=== PATIENT | male | born 1985 | race Caucasian/White ===

== ENCOUNTER 2024-03-31 10:54 | Outpatient (CLI) | payer OTHER, SELFPAY ==
--- NOTE | ~2024-03-31 | XR_ITS ---
Right Shoulder Technique: AP and axillary views were obtained. Clinical History: Injury Findings: No fracture or dislocation is seen. Osseous alignment is anatomic. The glenohumeral and acr omioclavicular joint spaces are preserved. Soft tissues are unremarkable. Impression: Unremarkable right shoulder radiographs. Reviewed, dictated and finalized at [facility]. Impression: Unremarkable right shoulder radiographs.
== END 2024-03-31 10:55 ==
LOC: MICIMG 10:56
PROVIDERS: PCP Orthopaedic Surgery; Visit Provider Nurse Practitioner Family
DX: S49.91XA Unspecified injury of right shoulder and upper arm, initial encounter (principal); X58.XXXA Exposure to other specified factors, initial encounter
CPT/HCPCS: 73030

== ENCOUNTER 2024-11-02 10:51 | Emergency (ER) | payer OTHER, SELFPAY ==
--- NOTE | ~2024-11-02 | XR_ITS ---
EXAMINATION: XR chest 2V DATE: 11/02/2024 12:06 INDICATION: Chest pain and palpitations TECHNIQUE: PA and lateral views of the chest were obtained. COMPARISON: None FINDINGS: The lungs are clear with no focal airspace opacities, pulmonary edema, pleural effusion or pneumothor ax. The cardiomediastinal silhouette is normal. Surgical clips in the upper abdomen. IMPRESSION: 1. No acute cardiopulmonary disease. Reviewed, dictated and finalized at location A. IN MARKER
--- NOTE | ~2024-11-02 | CT_ITS ---
EXAMINATION: CTA chest PE protocol DATE: 11/02/2024 14:08 INDICATION: Chest pain. TECHNIQUE: Computed tomography angiography (CTA) of the chest was performed with 100 mL Omnipaque-350 intravenous contrast timed to evaluate the pulmonary arteries. Coronal maximum intensity projection 3D-reconstructions were created by the technologist. Automated exposure control and iterative reconst ruction technique were employed. The dose-length product was 635.14 mGy-cm. COMPARISON: CT abdomen and pelvis 04/20/2019 FINDINGS: There is no pneumonia or pleural effusion. The heart size is normal. No pericardial effusio n. There is no pulmonary embolus. There are surgical clips around the inferior vena cava. There is mi ld bilateral gynecomastia. There is mild chronic anterior wedging of multiple vertebral bodies. There is mild thoracic spondylosis. IMPRESSION: 1. No pulmonary embolus. Reviewed, dictated and finalized at location A. IOPULMONARY TECHNICIAN AND EEG TECH IMPRESSION: 1. No pulmonary embolus.
--- NOTE | 2024-11-02 10:52 | ECG_ITS ---
Test Date: 2024-11-02 11:05:15 Measurements Intervals [place] Rate: 75 P: 13 W[place]: 167 QRS: 37 QRSD: 92 T: 49 QT: 345 QTc: 386 Interpretive Statements SINUS RHYTHM No previous ECG available for comparison Electronically Signed On 11-02-2024 14:28:59 GOLF RANGE ATTENDANT by Diogenes Harrison M.D.
[2024-11-02 10:53] VITALS: BP 153/92; PULSE 77; RESP 18; TEMP 36.6; O2SAT 100
[2024-11-02 11:26] LABS: Basophils Absolute Auto 0.1 K/mm3 (0.0-0.1); Basophils Percent Auto 0.7 % (0.2-1.2); Eosinophils Absolute Auto 0.1 K/mm3 (0-0.3); Eosinophils Percent Auto 1.3 % (0-4.4); Hematocrit 48.4 % (42.0-52.0); Immature Granulocyte Absolute 0.02 K/mm3 (0.00-0.031); Immature Granulocyte Percent A 0.3 % (0-0.5); Lymphocytes Absolute Auto 1.92 K/mm3 (0.9-3.2); Lymphocytes Percent Auto 27.1 % (18.3-44.2); Mean Corpuscular HGB Conc 33.1 g/dl (32-36); Mean Corpuscular Hemoglobin 30.3 pg (26-34); Mean Corpuscular Volume 91.7 fl (80-100); Mean Platelet Volume 9.2 fl (7.4-10.4); Monocytes Absolute Auto 0.4 K/mm3 (0.1-0.6); Monocytes Percent Auto 5.9 % (2.6-8.5); Neutrophils Absolute Auto 4.6 K/mm3 (1.3-6.7); Neutrophils Percent Auto 64.7 % (45.5-73.1); Platelet Count Result 241 k/mm3 (150-375); Red Blood Count 5.28 M/mm3 (4.6-6.20); White Blood Count 7.1 K/mm3 (4.5-10.0)
[2024-11-02 11:39] LABS: Alanine Aminotransferase 64 U/L (6-50); Albumin Level 4.8 g/dL (3.5-5.1); Alkaline Phosphatase 68 U/L (38-126); Anion Gap 5 mmol/L (4-12); Aspartate Amino Transferase 61 U/L (17-59); Bilirubin,Total 0.7 mg/dL (0.2-1.3); Blood Urea Nitrogen 16 mg/dL (9-20); Calcium 9.4 mg/dL (8.4-10.2); Carbon Dioxide 29 mmol/L (22-30); Chloride 102 mmol/L (98-107); Estimated CRCL calculation 102 ml/min; Estimated Glomerular Filt Rate > 60; Glucose 103 mg/dL (65-110); Lipase 108 U/L (23-300); Potassium 4.2 mmol/L (3.4-5.0); Sodium 136 mmol/L (137-145)
[2024-11-02 11:43] LABS: Partial Thromboplastin Time 26.1 Seconds (22.3-36.8); Prothrombin Time 13.3 Seconds (11.1-14.7)
[2024-11-02 11:46] LABS: Troponin I < 0.012 ng/mL (0.000-0.034)
--- NOTE | 2024-11-02 13:07 | ED.CHESTPAIN ---
HPI - Chest Pain General Chief Complaint: Chest Pain <Amanda Tellez APRN - Last Filed: 11/02/24 13:10> Stated Complaint: Chest pain <Amanda Tellez APRN - Last Filed: 11/02/24 13:10> Time Seen by Provider: 11/02/24 12:50 <Amanda Tellez APRN - Last Filed: 11/02/24 13:10> Focused HPI: Patient is a 39-year-old male who presents to the ER with complaints chest pain. He reports last night around 2:00 a.m. his chest started beating out of my chest. He describes the current pain as tight and feels as though he needs to take a deep breath to relieve the pain. Although the pain has decreased he reports it is still lingering, but not aggravating. Patient denies shortness of breast, recent fevers, or wheezing. GENERAL: Well-appearing, well-nourished, and in no acute distress. HEAD: Normocephalic, atraumatic. CHEST: Clear to auscultation. ?No respiratory distress. HEART: Regular rate and rhythm.? NEURO: ?Alert and oriented x3. Patient screened in triage and initial orders placed.? ?Additional care and disposition to be based upon?diagnostic testing and treatment. <Amanda Tellez APRN - Last Filed: 11/02/24 13:10> History of Present Illness HPI narrative: Agree with above <Laura Oneil MD - Last Filed: 11/02/24 15:18> Related Data Allergies/Adverse Reactions: Allergies Allergy/AdvReac Type Severity Reaction Status Date / Time No Known Allergies Allergy Verified 11/02/24 13:13 <Amanda Tellez APRN - Last Filed: 11/02/24 13:10> Review of Systems Review of Systems: All systems reviewed & are unremarkable except as noted in HPI and below <Laura Oneil MD - Last Filed: 11/02/24 15:18> PMFSH Past Medical History Medical History: Medical History History of testicular cancer Lymphedema of upper extremity following lymphadenectomy (~2004) Recurrent cold sores <Amandachristiana Tellez APRN - Last Filed: 11/02/24 13:10> Surgical History Surgical History: Surgical History H/O removal of testicle (~2004) right testicle, abdominal lymphadenectomy History of appendectomy <Amandachristiana Tellez, STEAMBLASTER - Last Filed: 11/02/24 13:10> Social History Social History: Social History Smoking status: Never smoker Alcohol intake: current Substance use: never Substance use type: does not use Living arrangements: with family Additional living arrangements comments: and Children 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 HEAD: Normocephalic, atraumatic. EYES: PERRLA and EOMI. ENT: Grossly unremarkable NECK: Supple. CHEST: Clear to auscultation. No respiratory distress. HEART: Regular rate and rhythm ABDOMEN: Soft, nontender, nondistended EXTREMITIES: Normal range of motion SKIN: Warm, dry, no rash. NEURO: Alert and oriented x3. PSYCH: Normal mood and affect. <Laura Oneil MD - Last Filed: 11/02/24 15:18> Course Vital Signs Vital signs: Vital Signs Temperature 97.9 F 11/02/24 10:53 Pulse Rate 77 11/02/24 10:53 Respiratory Rate 18 11/02/24 10:53 Blood Pressure 153/92 H 11/02/24 10:53 Pulse Oximetry 100 11/02/24 10:53 Oxygen Delivery Room Air 11/02/24 10:53 Temperature 98.2 F 11/02/24 14:18 Pulse Rate 79 11/02/24 14:18 Respiratory Rate 16 11/02/24 14:18 Blood Pressure 130/73 11/02/24 14:18 Pulse Oximetry 100 11/02/24 14:20 Oxygen Delivery Room Air 11/02/24 14:20 <Amanda Tellez APRN - Last Filed: 11/02/24 13:10> Vital Signs Temperature 97.9 F 11/02/24 10:53 Pulse Rate 77 11/02/24 10:53 Respiratory Rate 18 11/02/24 10:53 Blood Pressure 153/92 H 11/02/24 10:53 Pulse Oximetry 100 11/02/24 10:53 Oxygen Delivery Room Air 11/02/24 10:53 Temperature 98.2 F 11/02/24 14:18 Pulse Rate 79 11/02/24 14:18 Respiratory Rate 16 11/02/24 14:18 Blood Pressure 130/73 11/02/24 14:18 Pulse Oximetry 100 11/02/24 14:20 Oxygen Delivery Room Air 11/02/24 14:20 <Laura Oneil MD - Last Filed: 11/02/24 15:18> MDM - Chest Pain MDM Narrative Medical decision making narrative: 39-year-old male presenting with palpitations, chest tightness, lightheadedness. Vitals are stable. Exam remarkable for the above. EKG per my interpretation shows normal sinus rhythm, no ST elevations or depressions. Blood work with elevated D-dimer. Troponin is undetectable. TSH is within normal limits. CTA of the chest shows no pulmonary embolus. Patient currently denies significant complaints. Feel he is safe for outpatient management. Discussed appropriate supportive care and return precautions. Recommend close PCP follow-up. Patient is agreeable this plan. Discharged in stable condition. <Laura Oneil MD - Last Filed: 11/02/24 15:18> Differential Diagnosis Differential diagnosis: Likely atypical chest pain, costochondritis, chest pain and other (Palpitations, PE, anxiety) <Laura Oneil MD - Last Filed: 11/02/24 15:18> Medical Records Data Attestation: I reviewed the patient's medical records. <Laura Oneil MD - Last Filed: 11/02/24 15:18> Lab Data Attestation: I reviewed the patient's lab results. <Laura Oneil MD - Last Filed: 11/02/24 15:18> Result diagrams: 11/02/24 11:16 12/02/24 11:16 <Amanda Ryan Tellez, STEAMBLASTER - Last Filed: 11/02/24 13:10> Labs: Lab Results 11/02/24 11/02/24 Range/Units 11:16 13:20 WBC 7.1 (4.5-10.0) K/mm3 RBC 5.28 (4.6-6.20) M/mm3 Hgb 16.0 (14.0-18.0) g/dL Hct 48.4 (42.0-52.0) % MCV 91.7 (80-100) fl MCH 30.3 (26-34) pg MCHC 33.1 (32-36) g/dl RDW 13.0 (11.5-14.5) % Plt Count 241 (150-375) k/mm3 MPV 9.2 (7.4-10.4) fl Immature Gran % (Auto) 0.3 (0-0.5) % Neut % (Auto) 64.7 (45.5-73.1) % Lymph % (Auto) 27.1 (18.3-44.2) % [place] % (Auto) 5.9 (2.6-8.5) % Eos % (Auto) 1.3 (0-4.4) % Baso % (Auto) 0.7 (0.2-1.2) % Lymph # (Auto) 1.92 (0.9-3.2) K/mm3 [place] # (Auto) 0.4 (0.1-0.6) K/mm3 Eos # (Auto) 0.1 (0-0.3) K/mm3 Baso # (Auto) 0.1 (0.0-0.1) K/mm3 Abs Immat Gran (auto) 0.02 (0.00-0.031) K/mm3 Absolute Neuts (auto) 4.6 (1.3-6.7) K/mm3 Absolute Nucleated RBC 0.000 (0.0-0.012) K/mm3 Nucleated RBC % 0.0 (0.0-0.2) % PT 13.3 (11.1-14.7) Seconds INR 1.0 APTT 26.1 (22.3-36.8) Seconds D-Dimer 2.34 H (<0.48) ug/mL Sodium 136 L (137-145) mmol/L Potassium 4.2 (3.4-5.0) mmol/L Chloride 102 (98-107) mmol/L Carbon Dioxide 29 (22-30) mmol/L Anion Gap 5 (4-12) mmol/L BUN 16 (9-20) mg/dL Creatinine 1.00 (0.7-1.3) mg/dL Estim Creat Clear Calc 102 ml/min Estimated GFR > 60 (59 - ) Glucose 103 (65-110) mg/dL Calcium 9.4 (8.4-10.2) mg/dL Total Bilirubin 0.7 (0.2-1.3) mg/dL AST 61 H (17-59) U/L ALT 64 H (6-50) U/L Alkaline Phosphatase 68 (38-126) U/L Troponin I < 0.012 (0.000-0.034) ng/mL NT-Pro-B Natriuret Pep < 20 (19.9-100) pg/mL Total Protein 8.0 (6.3-8.2) g/dL Albumin 4.8 (3.5-5.1) g/dL Lipase 108 (23-300) U/L TSH (Reflex) 1.840 (0.465-4.68) uIU/mL <Amanda Tellez, STEAMBLASTER - Last Filed: 11/02/24 13:10> Lab Results 11/02/24 11/02/24 Range/Units 11:16 13:20 WBC 7.1 (4.5-10.0) K/mm3 RBC 5.28 (4.6-6.20) M/mm3 Hgb 16.0 (14.0-18.0) g/dL Hct 48.4 (42.0-52.0) % MCV 91.7 (80-100) fl MCH 30.3 (26-34) pg MCHC 33.1 (32-36) g/dl RDW 13.0 (11.5-14.5) % Plt Count 241 (150-375) k/mm3 MPV 9.2 (7.4-10.4) fl Immature Gran % (Auto) 0.3 (0-0.5) % Neut % (Auto) 64.7 (45.5-73.1) % Lymph % (Auto) 27.1 (18.3-44.2) % [place] % (Auto) 5.9 (2.6-8.5) % Eos % (Auto) 1.3 (0-4.4) % Baso % (Auto) 0.7 (0.2-1.2) % Lymph # (Auto) 1.92 (0.9-3.2) K/mm3 [place] # (Auto) 0.4 (0.1-0.6) K/mm3 Eos # (Auto) 0.1 (0-0.3) K/mm3 Baso # (Auto) 0.1 (0.0-0.1) K/mm3 Abs Immat Gran (auto) 0.02 (0.00-0.031) K/mm3 Absolute Neuts (auto) 4.6 (1.3-6.7) K/mm3 Absolute Nucleated RBC 0.000 (0.0-0.012) K/mm3 Nucleated RBC % 0.0 (0.0-0.2) % PT 13.3 (11.1-14.7) Seconds INR 1.0 APTT 26.1 (22.3-36.8) Seconds D-Dimer 2.34 H (<0.48) ug/mL Sodium 136 L (137-145) mmol/L Potassium 4.2 (3.4-5.0) mmol/L Chloride 102 (98-107) mmol/L Carbon Dioxide 29 (22-30) mmol/L Anion Gap 5 (4-12) mmol/L BUN 16 (9-20) mg/dL Creatinine 1.00 (0.7-1.3) mg/dL Estim Creat Clear Calc 102 ml/min Estimated GFR > 60 (59 - ) Glucose 103 (65-110) mg/dL Calcium 9.4 (8.4-10.2) mg/dL Total Bilirubin 0.7 (0.2-1.3) mg/dL AST 61 H (17-59) U/L ALT 64 H (6-50) U/L Alkaline Phosphatase 68 (38-126) U/L Troponin I < 0.012 (0.000-0.034) ng/mL NT-Pro-B Natriuret Pep < 20 (19.9-100) pg/mL Total Protein 8.0 (6.3-8.2) g/dL Albumin 4.8 (3.5-5.1) g/dL Lipase 108 (23-300) U/L TSH (Reflex) 1.840 (0.465-4.68) uIU/mL <Laura Oneil MD - Last Filed: 11/02/24 15:18> Imaging Data Radiologist's impression: ITS Impressions Chest X-Ray 11/02/24 12:07 IMPRESSION: 1. No acute cardiopulmonary disease. Chest CTA 11/02/24 14:18 IMPRESSION: 1. No pulmonary embolus. <Laura Oneil MD - Last Filed: 11/02/24 15:18> Critical Care Time Critical Care Time Critical Care Time: No <Laura Oneil MD - Last Filed: 11/02/24 15:18> Discharge Plan Discharge Clinical Impression: Palpitations, Chest tightness, Light-headedness <Amanda Tellez APRN - Last Filed: 11/02/24 13:10> Patient Disposition: Home, Self-Care <Amanda Tellez APRN - Last Filed: 11/02/24 13:10> Condition: Stable <Amanda Tellez APRN - Last Filed: 11/02/24 13:10> Instructions: Antibiotic Form, Chest Pain (DC), Heart Palpitations (DC) <Amanda Tellez APRN - Last Filed: 11/02/24 13:10> Additional Instructions: Your EKG, blood work, CT scan today are reassuring. Please rest and drink plenty of hydrating fluids. Follow-up closely with your PCP. If your symptoms worsen or other concerning symptoms arise, please return to the ER. <Amanda Tellez APRN - Last Filed: 11/02/24 13:10> Prescriptions: No Action acyclovir 400 mg tablet 400 mg PO DAILY Qty: 90 3RF <Amanda Tellez APRN - Last Filed: 11/02/24 13:10> Follow-up/Referrals: Ani Sadler MD [Primary Care Provider] - <Amanda Tellez APRN - Last Filed: 12/02/24 13:10>
[2024-11-02 13:13] VITALS: BP 147/75; PULSE 73; RESP 19; O2SAT 100
[2024-11-02] MEDS: ASPIRIN 81 MG CHEWABLE TABLET 324 MG PO (13:14)
[2024-11-02] MEDS: KETOROLAC (*BKC) 60 MG/2 ML VIAL IM (13:15)
[2024-11-02 13:52] LABS: D Dimer 2.34 ug/mL (<0.48)
[2024-11-02 13:55] LABS: NT Pro B Type Natriuretic Pept < 20 pg/mL (19.9-100)
[2024-11-02 14:18] VITALS: BP 130/73; PULSE 79; RESP 16; TEMP 36.8; O2SAT 100
[2024-11-02 14:20] VITALS: O2SAT 100
[2024-11-02 15:19] VITALS: BP 129/69; PULSE 70; RESP 10; TEMP 36.7; O2SAT 100
== END 2024-11-02 15:25 | disposition home or self-care (01) ==
PROVIDERS: Registered Nurse; Student in an Organized Health Care Education/Training Program; Emergency Provider Emergency Medicine; PCP Family Medicine
DX: R00.2 Palpitations (principal); R07.89 Other chest pain; R42 Dizziness and giddiness; Z85.47 Personal history of malignant neoplasm of testis
CPT/HCPCS: 36415; 71046; 71275; 80053; 83690; 83880; 84443; 84484; 85025; 85380; 85610; 85730; 93005; 96372; 99284; A9270; J1885; Q9967

== ENCOUNTER 2024-11-22 09:01 | Emergency (ER) | payer OTHER, SELFPAY ==
--- NOTE | ~2024-11-22 | XR_ITS ---
EXAMINATION: XR chest 2V DATE: 11/22/2024 10:30 INDICATION: Cough and chills. TECHNIQUE: Frontal and lateral views of the chest were obtained. COMPARISON: Chest 2 views 11/02/24, chest CT 11/02/2024 FINDINGS: There is mild atelectasis at the lung bases. No pleural effusion or pneumothorax. The heart size is normal. There is mild chronic anterior wedging of multiple vertebral bodies. There are surgi muna clips in the abdomen. IMPRESSION: 1. Mild atelectasis at the lung bases. Reviewed, dictated and finalized at location A. [facility]
[2024-11-22 09:42] VITALS: BP 138/81; PULSE 104; RESP 18; TEMP 37.2; O2SAT 97
--- NOTE | 2024-11-22 10:00 | ED_ITS ---
HPI - URI/Sore Throat General Chief Complaint: Upper Respiratory Infection Stated Complaint: congestion Time Seen by Provider: 11/22/24 10:00 Source: patient, RN notes reviewed and old records reviewed Mode of arrival: ambulatory Limitations: no limitations History of Present Illness HPI Narrative: 39-year-old male who presents to [facility] with complaints of sore throat, headache, nonproductive cough with some chills and sweats for the past 5 days with loss of appetite.. 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 Patient reports no shortness of breath or any noted wheezing. Patient has been taking DayQuil and NyQuil has not taken his temperature but has had chills and sweats. MD elicited complaint: cough, sore throat and other (headache.chills and sweats) Onset (ago): day(s) (5) Consistency: constant Pain scale (0-10): 5 Able to tolerate fluids by mouth: Yes Treatments prior to arrival: other ( DayQuil and NyQuil) Related Data Allergies Allergy/AdvReac Type Severity Reaction Status Date / Time No Known Allergies Allergy Verified 11/22/24 09:53 Review of Systems Review of Systems: CONSTITUTIONAL: report malaise, chills, sweats, unknown if fever. EYES: Denies visual changes, redness, or discharge. ENT: Reports rhinorrhea, congestion, sinus pain, no otalgia and positive sore throat. CARDIOVASCULAR: Denies chest pain, palpitations, or edema. RESPIRATORY: Reports cough.? Denies dyspnea. GASTROINTESTINAL: Denies abdominal pain, nausea, vomiting, diarrhea SKIN: Denies rash or itching. MUSCULOSKELETAL: Denies myalgia. NEUROLOGIC: reports headache. All systems reviewed & are unremarkable except as noted in HPI and below PMFSH Past Medical History Medical History Recurrent cold sores History of testicular cancer Lymphedema of upper extremity following lymphadenectomy (~2004) Surgical History Surgical History History of appendectomy H/O removal of testicle (~2004) right testicle, abdominal lymphadenectomy Social History Social History Smoking status: Never smoker Alcohol intake: current Drinks per week: 4 Substance use: never Substance use type: does not use Living arrangements: with family Additional living arrangements comments: and Children 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 There is no relevant family history pertinent to the presenting complaint Exam Narrative: GENERAL: Well-appearing, well-nourished, and in no acute distress. HEAD: Normocephalic EYES: PERRLA, conjunctivae clear ENT: Nares clear, turbinates edematous and erythematous, clear discharge. Mucous membranes moist. TM pearly baez with dull light reflex bilaterally; no tragal tenderness. Oropharynx erythematous without lesions. Tonsils not enlarged and without exudate, no drooling, no hoarseness, no trismus, uvula midline, post nasal drainage present NECK: Supple. No lymphadenopathy CHEST: Decreased bases on auscultation, breath sounds equal. No wheezing, rhonchi, rales, or stridor. No respiratory distress, speaks in full sentences.cough noted SAO2 97% on room air HEART: Regular rate and rhythm. No murmur heard. SKIN: Warm, dry, no rash. NEURO: Alert and oriented x3. PSYCH: Normal mood and affect Course Course Emergency Course: Patient is aware of diagnosis, understands and agrees to treatment plan.? Anticipatory guidance given.? Patient agrees to follow-up as directed and is aware of reasons to seek care at the emergency department. Portions of this record may have been created with voice recognition software Level of Care: Express Care Visit Vital Signs Vital signs: Vital Signs Temperature 37.2 C 11/22/24 09:42 Pulse Rate 104 H 11/22/24 09:42 Respiratory Rate 18 11/22/24 09:42 Blood Pressure 138/81 11/22/24 09:42 Pulse Oximetry 97 11/22/24 09:42 Oxygen Delivery Room Air 11/22/24 09:42 Temperature 37.2 C 11/22/24 09:42 Pulse Rate 104 H 11/22/24 09:42 Respiratory Rate 18 11/22/24 09:42 Blood Pressure 138/81 11/22/24 09:42 Pulse Oximetry 97 11/22/24 09:42 Oxygen Delivery Room Air 11/22/24 09:42 Reviewed MDM - URI/Sore Throat MDM Narrative Medical decision making narrative: Differential diagnosis considered: Jang virus, strep pharyngitis, allergic rhinitis, upper respiratory tract infection, sinusitis, rhinosinusitis, nasopharyngitis. viral pharyngitis, otitis media, otitis externa, pneumonia, bronchitis, viral cough syndrome, viral syndrome, and influenza.? Exam findings show no acute concerns or changes; patient is non-toxic appearing and is in no distress.? Patient is appropriate for outpatient treatment and follow-up. Differential Diagnosis Differential diagnosis: Likely upper respiratory infection, otitis media, sinusitis, viral infection, influenza, pharyngitis and other ( strep pharyngitis, COVID) Medical Records Attestation: I reviewed the patient's medical records. Lab Data Attestation: I reviewed the patient's lab results. Lab results narrative: strep screen neg, strep culture sent,influenza a negative and influenza B negative COVID antigen neg Labs: Lab Results 11/22/24 11/22/24 Range/Units 10:15 10:19 POC Influenza A Ag Negative (Negative) POC Influenza B Ag Negative (Negative) POC SARS CoV-2 Ag Negative (Negative) POC Grp A Strep Screen Negative (Negative) Imaging Data My impression: mild atelectasis in lung bases Radiologist's impression: [place] [address] XRay Report Signed Patient: Luis F Tapia : 1985 MR#: [id number] Age: 39 Acct:[id number] Loc: [facility] ADM Date: 11/22/24Attending Dr: Ordering Physician: Regina Hubbard APRN Date of Service: 11/22/24 Procedure(s): XR chest 2V Accession Number(s): [id number] cc: Ani Sadler MD; Regina Hubbard APRN~ EXAMINATION: XR chest 2V DATE: 11/22/2024 10:30 INDICATION: Cough and chills. TECHNIQUE: Frontal and lateral views of the chest were obtained. COMPARISON: Chest 2 views 11/02/24, chest CT 11/02/2024 FINDINGS: There is mild atelectasis at the lung bases. No pleural effusion or pneumothorax. The heart size is normal. There is mild chronic anterior wedging of multiple vertebral bodies. There are surgical clips in the abdomen. IMPRESSION: 1. Mild atelectasis at the lung bases. Reviewed, dictated and finalized at location A. EY RESEARCH ANALYST Dictated By: Abelino Gray MD 11/22/24 1036 Signed By: <Electronically signed by Abelino Gray MD in OV> Critical Care Time Critical Care Time Critical Care Time: No Discharge Plan Discharge Clinical Impression: Upper respiratory infection with cough and congestion Patient Disposition: Home, Self-Care Condition: Stable Instructions: Antibiotic Form, Upper Respiratory Infection (ED), Acute Cough (ED) Additional Instructions: Increase fluids especially juices and water Xtel-wod-lfoymzt cough and cold medicine of your choice for your symptoms Zyrtec Claritin or Ella daily Continue your inhaler/nebulizer as directed Steroids as directed--take with food heat to the face 20-30 minutes 4-6 times a day for pain Salt water gargles, throat lozenges or throat sprays as desired Antibiotic as directed--finished the medication If your symptoms persist, change or worsen significantly before you can contact your personal physician then please, without delay, go to the emergency department for further evaluation. Follow-up with PCP in 7-10 days or sooner if needed Follow up with PCP soon in regards to your blood pressure which is elevated above threshold for referral. Blood pressure above 120/80 may indicate pre- hypertension. 138/81 Patient Language: Luxembourgish Prescriptions: New prednisone 20 mg tablet 40 mg PO DAILY 5 Days Qty: 10 0RF amoxicillin-pot clavulanate 875-125 mg tablet 1 tablet PO Q12H Qty: 20 0RF Rx Instructions: take with food complete all doses recommend probiotics or eating activa yogurt while on this medication Follow-up/Referrals: Ani Sadler MD [Primary Care Provider] - Time of Disposition: 10:48 Quality Silas Coma Scale Eyes: Open Verbal: Oriented and Alert Motor: Follows Commands Silas Coma Total Score: 15
[2024-11-22 10:17] LABS: EDSTREPNEGPOS1 Negative (Negative)
[2024-11-22 10:21] LABS: EDCOVIDSCREEN Negative (Negative); EDINFLUASCREEN Negative (Negative); EDINFLUBSCREEN Negative (Negative)
== END 2024-11-22 10:51 | disposition home or self-care (01) ==
PROVIDERS: Emergency Provider Registered Nurse; PCP Family Medicine
DX: J06.9 Acute upper respiratory infection, unspecified (principal); R05.9 Cough, unspecified; Z20.822 Contact with and (suspected) exposure to COVID-19
CPT/HCPCS: 71046; 87081; 87426; 87804; 87880; 99213; G0463

== ENCOUNTER 2025-04-06 11:04 | Outpatient (CLI) | payer OTHER, SELFPAY ==
[2025-04-06 12:52] LABS: Alanine Aminotransferase 34 U/L (6-50); Albumin Level 4.5 g/dL (3.5-5.1); Alkaline Phosphatase 59 U/L (38-126); Aspartate Amino Transferase 54 U/L (17-59); Bilirubin,Total 0.6 mg/dL (0.2-1.3)
== END 2025-04-06 11:05 | disposition home or self-care (01) ==
LOC: ANHGOSHLAB 11:05
PROVIDERS: PCP Family Medicine; Visit Provider Family Medicine
DX: R79.89 Other specified abnormal findings of blood chemistry (principal)
CPT/HCPCS: 36415; 80076

== ENCOUNTER 2025-07-01 00:38 | Day surgery (SDC) | payer OTHER, SELFPAY ==
[2025-06-14 14:34] VITALS: BMI 32.0
[2025-07-01 09:24] VITALS: BP 119/82; PULSE 60; RESP 18; TEMP 36.1; O2SAT 100
[2025-07-01] MEDS: LACTATED RINGERS 1,000 ML 150 ML IV CONT (09:32)
--- NOTE | 2025-07-01 09:37 | WPDANESEPPF ---
Anes - Initial Pre Proc Eval Procedure: Operation Date: 07/01/25 10:30 Proposed Procedures p Esophagogastroduodenoscopy - Cornell Velazquez MD Date/Time: 07/01/25 09:37 Surgeon: Cornell Velazquez MD Pre Op Diagnosis: Personal history of other diseases of the digestiv Patient Data Age: 39 Gender: M Height: 1.73 m Weight: 100.6 kg Last Vital Signs Temp 36.1 C L 07/01/25 09:24 Pulse 60 07/01/25 09:24 Resp 18 07/01/25 09:24 BP 119/82 07/01/25 09:24 Pulse Ox 100 07/01/25 09:24 O2 Del Method Room Air 07/01/25 09:24 Allergies Allergy/AdvReac Type Severity Reaction Status Date / Time No Known Allergies Allergy Verified 07/01/25 09:23 Home Medications ?Medication ?Instructions ?Recorded ?Confirmed ?Type acyclovir 400 mg tablet 400 mg PO DAILY 04/06/25 06/14/25 History omeprazole 40 mg capsule,delayed 40 mg PO DAILY #90 caps 04/06/25 04/06/25 Rx release Patient hx anesthesia problems: none Family hx anesthesia problems: none Results Review: All pre-operative results and documents have been reviewed as part of the pre-operative evaluation. [facility] Past Medical History Medical History Hx of gastroesophageal reflux (GERD) Right rotator cuff tendonitis Recurrent cold sores History of testicular cancer Lymphedema of upper extremity following lymphadenectomy (~2004) Surgical History Surgical History History of appendectomy H/O removal of testicle (~2004) right testicle, abdominal lymphadenectomy Social History Social History Smoking status: Never smoker Alcohol intake: current Drinks per week: 3 Alcohol use details: Liquor Substance use: never Substance use type: does not use Do You Feel Safe in your Home?: Yes Living arrangements: with family Additional living arrangements comments: and Children 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 Gender identity (if verbalized by the patient): Male Sexual Orientation (if Verbalized by the Patient): Straight or Heterosexual Spiritual care concerns: No Anes - Eval Final PreProcedure Day of Procedure 07/01/25 09:37 Patient weight: obese Heart: regular rate and rhythm Lungs: clear to auscultation Airway: Mallampati scale class 1 Neurological: alert and oriented Last oral intake: >/= 8 hours ASA classification: II Emergent: no Anesthetic plan: proceed Anesthesia type and monitoring: general GIVS and standard monitoring Results Review: All pre-operative results and documents have been reviewed as part of the pre-operative evaluation. Informed Consent: The patient's anesthetic plan and its attendant risks and benefits were discussed with the patient/family/POA. Questions were solicited and answers provided to the satisfaction of the patient/family/POA.
--- NOTE | 2025-07-01 09:56 | PM.HPGS ---
History of Present Illness History of Present Illness Consent: Risks, benefits, and alternatives have been discussed and questions answered. Patient agrees to proceed with procedure. Chief complaint: Personal history of other diseases of the digestiv Narrative: Luis F Tapia is a 39 year old male here for first EGD, dysphagia for few months Review of Systems Review of Systems: All systems reviewed & are unremarkable except as noted in HPI and below PMFSH Past Medical History Medical History Hx of gastroesophageal reflux (GERD) Right rotator cuff tendonitis Recurrent cold sores History of testicular cancer Lymphedema of upper extremity following lymphadenectomy (~2004) Surgical History Surgical History History of appendectomy H/O removal of testicle (~2004) right testicle, abdominal lymphadenectomy Social History Social History Smoking status: Never smoker Alcohol intake: current Drinks per week: 3 Alcohol use details: Liquor Substance use: never Substance use type: does not use Do You Feel Safe in your Home?: Yes Living arrangements: with family Additional living arrangements comments: and Children 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 Gender identity (if verbalized by the patient): Male Sexual Orientation (if Verbalized by the Patient): Straight or Heterosexual Spiritual care concerns: No Meds Home Medications and Allergies Home Medications ?Medication ?Instructions ?Recorded ?Confirmed ?Type acyclovir 400 mg tablet 400 mg PO DAILY 04/06/25 06/14/25 History omeprazole 40 mg capsule,delayed 40 mg PO DAILY #90 caps 04/06/25 04/06/25 Rx release Allergies Allergy/AdvReac Type Severity Reaction Status Date / Time No Known Allergies Allergy Verified 07/01/25 09:23 Vital Signs Vital Signs - 24 hr 07/01/25 09:24 Temperature 97 F L Pulse Rate 60 Respiratory Rate 18 Blood Pressure 119/82 Pulse Oximetry 100 Oxygen Delivery Room Air Exam Const: General: comfortable and no acute distress HENMT: Face/Nose/Sinus: Normal nares present Eyes: General: appearance normal, both eyes and all related structures Neck: Neck: no JVD Resp: Auscultation: clear to auscultation bilaterally Cardio: Rate: regular rate Rhythm: regular rhythm GI: Inspection: non-distended GI Palp: Yes Soft to palpation Skin: General skin exam: normal color Neuro: General: gait normal Speech: normal speech Extrem: General: normal to inspection Psych: Mental Status: mental status grossly normal Assessment and Plan Assessment and plan (1) Dysphagia: Qualifiers: Dysphagia type: esophageal phase Qualified Code(s): R13.19 - Other dysphagia Code(s): R13.10 - Dysphagia, unspecified Status: Acute Assessment and Plan: egd with bx, assess if eoe
--- NOTE | 2025-07-01 10:02 | S_PTH ---
PATIENT: Luis F Tapia LOC: [facility]#:[id number] AGE/SX: 39/M ROOM: RE07/01/[address]: Cornell Velazquez MD : 1985 BED: DIS: 07/01/2025 SPEC #: [id number] RECD: 07/01/25 10:49 STATUS: GENE REJeanie #: [id number] JEROD: 07/01/25 10:[address]: Cornell Velazquez DEPT: [facility] Surgical RECD BY: Maribel Lewis ENTERED: 07/01/25 10:51 SP TYPE: Surgical OTHR DR: Ani Sadler MD Tissues: A - Gastric Biopsy B - Esophageal Biopsy C - Esophageal Biopsy Procedures: Hematoxylin and Eosin Stain Gross and Microscopic Level 4
[2025-07-01 10:10] VITALS: BP 103/52; PULSE 62; RESP 16; O2SAT 100
[2025-07-01 10:20] VITALS: BP 100/56; PULSE 60; RESP 14; O2SAT 100
[2025-07-01 10:30] VITALS: BP 100/53; PULSE 60; RESP 15; O2SAT 100
== END 2025-07-01 10:58 | disposition home or self-care (01) ==
PROVIDERS: PCP Family Medicine; Visit Provider Internal Medicine Gastroenterology
PROC: 0DJ08ZZ Inspection of Upper Intestinal Tract, Via Natural or Artificial Opening Endoscopic (ICD-10-PCS; CPT 43239; principal; 2025-07-01 10:30)
DX: R13.10 Dysphagia, unspecified (principal); K21.00 Gastro-esophageal reflux disease with esophagitis, without bleeding; E66.9 Obesity, unspecified; Z68.33 Body mass index [BMI] 33.0-33.9, adult
CPT/HCPCS: 43239; 88305; J2003; J2704; J7120